=== PATIENT | male | born 1985 | race Caucasian/White ===

== ENCOUNTER 2021-12-01 19:33 | Emergency (ER) | payer MEDICARE, MEDICAID ==
[2021-12-01] MEDS ORDERED: fentaNYL 100 MCG/2 ML SDV IM ONE (20:46)
[2021-12-01] MEDS ORDERED: Ketorolac 30 MG/ML SDV IM ONE (21:33)
[2021-12-01] MEDS ORDERED: Acetaminophen/HYDROcodone 325-5 MG Tab PO ONE (21:34)
== END 2021-12-01 22:21 | disposition home or self-care (01) ==
LOC: JP.ED 19:33
DX: G89.18 Other acute postprocedural pain (principal); M25.561 Pain in right knee; Z88.2 Allergy status to sulfonamides; Z79.01 Long term (current) use of anticoagulants
CPT/HCPCS: 96372; 99283; A9270-GY; J1885; J3010

== ENCOUNTER 2021-12-10 20:29 | Emergency (ER) | payer MEDICARE, MEDICAID ==
[2021-12-11] MEDS ORDERED: diphenhydrAMINE 25 MG Cap PO ONE (00:44)
== END 2021-12-11 00:56 | disposition home or self-care (01) ==
LOC: JP.ED 20:29
DX: Z48.89 Encounter for other specified surgical aftercare (principal); Z88.2 Allergy status to sulfonamides; Z79.01 Long term (current) use of anticoagulants; Z79.899 Other long term (current) drug therapy
CPT/HCPCS: 36415; 80048; 85025; 85379; 86140; 93971; 99283; A9270

== ENCOUNTER 2022-06-17 17:10 | Emergency (ER) | payer MEDICARE, MEDICAID ==
[2022-06-17 21:41] LABS: ESTIMATED GFR 72 mL/min (>60)
== END 2022-06-18 01:56 ==
LOC: JP.ED 17:10
DX: F32.A Depression, unspecified (principal); F41.9 Anxiety disorder, unspecified; Z20.822 Contact with and (suspected) exposure to COVID-19; Z88.2 Allergy status to sulfonamides; Z79.899 Other long term (current) drug therapy
CPT/HCPCS: 36415; 80053; 80305; 84443; 85027; 99285; U0002

== ENCOUNTER 2022-09-11 10:48 | Emergency (ER) | payer MEDICARE, MEDICAID ==
[2022-09-11] MEDS ORDERED: Nitroglycerin 0.4 MG Tab.SL SL PRN (11:09)
[2022-09-11 11:48] LABS: ESTIMATED GFR 66 mL/min (>60)
[2022-09-11] MEDS ORDERED: Ketorolac 30 MG/ML SDV IVPUSH ONE (12:27)
[2022-09-11] MEDS ORDERED: Sodium Chloride 0.9% 1,000 ML IV SCH (12:45)
== END 2022-09-11 14:45 | disposition home or self-care (01) ==
LOC: JP.ED 10:48
DX: R07.89 Other chest pain (principal); Z91.048 Other nonmedicinal substance allergy status; Z88.2 Allergy status to sulfonamides; Z88.8 Allergy status to other drugs, medicaments and biological substances; Z79.01 Long term (current) use of anticoagulants; Z79.899 Other long term (current) drug therapy; Z90.49 Acquired absence of other specified parts of digestive tract
CPT/HCPCS: 36415; 71045; 80053; 84484; 85025; 85379; 93005; 96374; 99285; J1885; J7030

== ENCOUNTER 2022-12-13 11:59 | Emergency (ER) | payer MEDICARE, MEDICAID | END 2022-12-13 13:07 | disposition home or self-care (01) | LOC: JP.ED 11:59 | DX: K04.7 Periapical abscess without sinus (principal); Z91.048 Other nonmedicinal substance allergy status; Z88.2 Allergy status to sulfonamides; Z88.8 Allergy status to other drugs, medicaments and biological substances; Z86.16 Personal history of COVID-19 | CPT/HCPCS: 99282; 99283 ==

== ENCOUNTER 2023-02-21 19:43 | Emergency (ER) | payer MEDICARE, MEDICAID ==
[2023-02-21] MEDS ORDERED: Cyclobenzaprine 10 MG Tab PO ONE (20:17)
[2023-02-21] MEDS ORDERED: Ketorolac 30 MG/ML SDV IM ONE (20:17)
== END 2023-02-21 21:49 | disposition home or self-care (01) ==
LOC: JP.ED 19:43
DX: M54.50 Low back pain, unspecified (principal); M19.90 Unspecified osteoarthritis, unspecified site; Z91.040 Latex allergy status; Z88.8 Allergy status to other drugs, medicaments and biological substances; Z88.2 Allergy status to sulfonamides; Z79.01 Long term (current) use of anticoagulants; Z86.16 Personal history of COVID-19
CPT/HCPCS: 96372; 99284; A9270; J1885; 99283

== ENCOUNTER 2023-04-15 13:28 | Emergency (ER) | payer MEDICARE, MEDICAID ==
[2023-04-15] MEDS ORDERED: HYDROmorphone 0.5 MG/0.5 ML Syringe IM ONE (17:07)
[2023-04-15] MEDS ORDERED: Methocarbamol 500 MG Tab PO ONE (18:59)
== END 2023-04-15 19:10 | disposition home or self-care (01) ==
LOC: JP.ED 13:28
DX: M51.16 Intervertebral disc disorders with radiculopathy, lumbar region (principal); G89.29 Other chronic pain; Z91.09 Other allergy status, other than to drugs and biological substances; Z88.2 Allergy status to sulfonamides; Z88.8 Allergy status to other drugs, medicaments and biological substances; Z79.01 Long term (current) use of anticoagulants; Z86.718 Personal history of other venous thrombosis and embolism; Z86.16 Personal history of COVID-19; Z87.891 Personal history of nicotine dependence
CPT/HCPCS: 72131; 76377; 96372; 99283; A9270; J1170

== ENCOUNTER 2023-07-13 20:26 | Emergency (ER) | payer MEDICAID, MEDICARE ==
[2023-07-13] MEDS ORDERED: Ketorolac 30 MG/ML SDV IM ONE (20:48)
[2023-07-13] MEDS ORDERED: tiZANidine 2 MG Tab PO SCH (21:00)
[2023-07-13] MEDS ORDERED: HYDROmorphone 1 MG/ML Syringe IVPUSH ONE (21:38)
== END 2023-07-13 22:41 | disposition home or self-care (01) ==
LOC: JP.ED 20:26
DX: M54.50 Low back pain, unspecified (principal); G89.29 Other chronic pain; Z91.048 Other nonmedicinal substance allergy status; Z88.2 Allergy status to sulfonamides; Z79.01 Long term (current) use of anticoagulants; Z86.16 Personal history of COVID-19
CPT/HCPCS: 96372; 96374; 99284; A9270; J1170; J1885

== ENCOUNTER 2023-08-13 19:06 | Emergency (ER) | payer MEDICARE | END 2023-08-13 21:12 | disposition left against medical advice (07) | LOC: JP.ED 19:06 | DX: Z53.21 Procedure and treatment not carried out due to patient leaving prior to being seen by health care provider (principal) ==

== ENCOUNTER 2023-08-17 14:33 | Emergency (ER) | payer MEDICARE ==
[2023-08-17] MEDS ORDERED: Methocarbamol 500 MG Tab PO ONE (15:03)
== END 2023-08-17 16:32 | disposition home or self-care (01) ==
LOC: JP.ED 14:33
DX: M54.50 Low back pain, unspecified (principal); G89.29 Other chronic pain; Z88.2 Allergy status to sulfonamides; Z91.09 Other allergy status, other than to drugs and biological substances; Z87.891 Personal history of nicotine dependence
CPT/HCPCS: 99284; A9270

== ENCOUNTER 2023-09-08 11:27 | Emergency (ER) | payer MEDICARE ==
[2023-09-08] MEDS ORDERED: HYDROmorphone 0.5 MG/0.5 ML Syringe IVPUSH ONE (12:11)
[2023-09-08] MEDS ORDERED: Naloxone 0.4 MG/ML SDV IVPUSH PRN (12:11)
[2023-09-08 12:25] LABS: BASOPHILS ABSOLUTE AUTO 0.06 K/uL (0.00-0.10); BASOPHILS PERCENT AUTO 0.8 % (0.1-1.3); EOSINOPHILS ABSOLUTE AUTO 0.07 K/uL (0.00-0.40); EOSINOPHILS PERCENT AUTO 0.9 % (0.0-5.4); HEMATOCRIT 46.2 % (38.4-49.7); HEMOGLOBIN 15.9 g/dL (12.9-16.9); IMMATURE GRAN ABSOLUTE AUTO 0.03 K/uL (0.00-0.23); IMMATURE GRAN PERCENT AUTO 0.4 % (0.0-0.7); LYMPHOCYTES ABSOLUTE AUTO 2.32 K/uL (0.8-3.3); LYMPHOCYTES PERCENT AUTO 29.9 % (11.4-47.7); MEAN CORPUSCULAR HEMOGLOBIN 30.7 pg (31.6-35.5); MEAN CORPUSCULAR HGB CONC 34.4 g/dL (31.6-35.5); MEAN CORPUSCULAR VOLUME 89.2 fL (81.4-99.0); MONOCYTES ABSOLUTE AUTO 0.54 K/uL (0.20-0.90); MONOCYTES PERCENT AUTO 6.9 % (3.3-12.6); NEUTROPHILS ABSOLUTE AUTO 4.75 K/uL (1.0-7.6); NEUTROPHILS PERCENT AUTO 61.1 % (40.0-78.1); PLATELET COUNT,PLT 218 K/uL (130-375); RED BLOOD CELL COUNT 5.18 M/uL (4.14-5.76); WHITE BLOOD CELL COUNT,WBC 7.8 K/uL (3.2-11.0)
[2023-09-08 12:42] LABS: ANION GAP 8.3 mmol/L (5.0-14.0); C-REACTIVE PROTEIN 0.06 mg/dL (0.0-0.3); CALCIUM 8.6 mg/dL (8.5-10.1); CREATININE 1.1 mg/dL (0.8-1.3); EST CRCL DRUG DOSING (CG) 104.83 mL/min; POTASSIUM,K 4.3 mmol/L (3.6-5.2)
== END 2023-09-08 14:38 | disposition home or self-care (01) ==
LOC: JP.ED 11:27
DX: M54.16 Radiculopathy, lumbar region (principal); Z86.711 Personal history of pulmonary embolism; Z86.16 Personal history of COVID-19; Z79.01 Long term (current) use of anticoagulants; Z79.899 Other long term (current) drug therapy; Z91.048 Other nonmedicinal substance allergy status; Z88.2 Allergy status to sulfonamides
CPT/HCPCS: 36415; 72148; 72148-26; 80048; 85025; 86140; 96374; 99284; 99284-25; J1170

== ENCOUNTER 2023-11-06 13:12 | Emergency (ER) | payer MEDICARE ==
[2023-11-06] MEDS ORDERED: Ketorolac 30 MG/ML SDV IM ONE (14:57)
== END 2023-11-06 15:19 | disposition home or self-care (01) ==
LOC: JP.ED 13:12
DX: M47.26 Other spondylosis with radiculopathy, lumbar region (principal); M25.352 Other instability, left hip; M25.552 Pain in left hip; G89.29 Other chronic pain; Z86.16 Personal history of COVID-19; Z90.49 Acquired absence of other specified parts of digestive tract; Z79.899 Other long term (current) drug therapy; Z88.2 Allergy status to sulfonamides; Z91.048 Other nonmedicinal substance allergy status; Z88.8 Allergy status to other drugs, medicaments and biological substances
CPT/HCPCS: 96372; 99283; J1885

== ENCOUNTER 2024-01-19 20:39 | Emergency (ER) | payer MEDICARE ==
[2024-01-19 21:54] LABS: CORONAVIRUS COVID-19 NAA NEGATIVE (NEGATIVE); INFLUENZA A NAA NEGATIVE (NEGATIVE); INFLUENZA B NAA NEGATIVE (NEGATIVE); RESPIRATORY SYNCYTIAL VIR NAA NEGATIVE (NEGATIVE)
[2024-01-19] MEDS: Doxycycline 100 MG Cap PO ONE (21:59)
== END 2024-01-19 22:11 | disposition home or self-care (01) ==
LOC: JP.ED 20:39
DX: R06.02 Shortness of breath (principal); E78.00 Pure hypercholesterolemia, unspecified; Z90.49 Acquired absence of other specified parts of digestive tract; Z79.899 Other long term (current) drug therapy; Z88.2 Allergy status to sulfonamides; Z91.048 Other nonmedicinal substance allergy status
CPT/HCPCS: 0241U; 99284; A9270

== ENCOUNTER 2024-05-15 09:58 | Emergency (ER) | payer MEDICARE ==
[2024-05-15] MEDS: Ondansetron 4 MG/2 ML SDV IVPUSH ONE (11:53)
[2024-05-15] MEDS: Ketorolac 30 MG/ML SDV IVPUSH ONE (11:54)
[2024-05-15 11:55] LABS: BASOPHILS ABSOLUTE AUTO 0.03 K/uL (0.00-0.10); BASOPHILS PERCENT AUTO 0.6 % (0.1-1.3); EOSINOPHILS ABSOLUTE AUTO 0.08 K/uL (0.00-0.40); EOSINOPHILS PERCENT AUTO 1.6 % (0.0-5.4); HEMATOCRIT 40.9 % (38.4-49.7); HEMOGLOBIN 14.6 g/dL (12.9-16.9); IMMATURE GRAN PERCENT AUTO 0.2 % (0.0-0.7); LYMPHOCYTES ABSOLUTE AUTO 1.27 K/uL (0.8-3.3); LYMPHOCYTES PERCENT AUTO 24.9 % (11.4-47.7); MEAN CORPUSCULAR HEMOGLOBIN 30.7 pg (31.6-35.5); MEAN CORPUSCULAR HGB CONC 35.7 g/dL (31.6-35.5); MEAN CORPUSCULAR VOLUME 86.1 fL (81.4-99.0); MONOCYTES ABSOLUTE AUTO 0.47 K/uL (0.20-0.90); MONOCYTES PERCENT AUTO 9.2 % (3.3-12.6); NEUTROPHILS ABSOLUTE AUTO 3.25 K/uL (1.0-7.6); NEUTROPHILS PERCENT AUTO 63.5 % (40.0-78.1); PLATELET COUNT,PLT 168 K/uL (130-375); RED BLOOD CELL COUNT 4.75 M/uL (4.14-5.76); WHITE BLOOD CELL COUNT,WBC 5.1 K/uL (3.2-11.0)
[2024-05-15] MEDS: Sodium Chloride 0.9% 10 ML Syringe FLUSH PRN (11:55)
[2024-05-15 11:57] LABS: IMMATURE GRAN ABSOLUTE AUTO 0.01 K/uL (0.00-0.23)
[2024-05-15 12:16] LABS: A/G RATIO 1.3 (1.2-2.2); ALANINE AMINOTRANSFERASE,ALT 51 U/L (12-78); ALBUMIN 3.9 g/dL (3.4-5.0); ALKALINE PHOSPHATASE 116 U/L (46-116); ANION GAP 6.8 mmol/L (5.0-14.0); ASPARTATE AMNIOTRANSFERASE,AST 27 U/L (15-37); BILIRUBIN TOTAL 0.4 mg/dL (0.2-1.0); BLOOD UREA NITROGEN,BUN 17 mg/dL (7-18); CALCIUM 8.6 mg/dL (8.5-10.1); CARBON DIOXIDE,CO2 26 mmol/L (21-32); CHLORIDE,CL 107 mmol/L (100-108); CREATININE 1.1 mg/dL (0.8-1.3); EST CRCL DRUG DOSING (CG) 103.79 mL/min; ESTIMATED GFR 87 mL/min (>60); GLUCOSE RANDOM 122 mg/dL (74-106); POTASSIUM,K 4.5 mmol/L (3.6-5.2); PROTEIN TOTAL,TP 6.9 g/dL (6.4-8.2); SODIUM,NA 140 mmol/L (140-148)
[2024-05-15 12:46] LABS: APPEARANCE,URINE CLOUDY (CLEAR); BILIRUBIN,URINE SMALL (NEGATIVE); COLOR,URINE BROWN (YELLOW); GLUCOSE,URINE NEGATIVE (NEGATIVE); KETONES,URINE NEGATIVE (NEGATIVE); LEUKOCYTE ESTERASE,URINE NEGATIVE (NEGATIVE); NITRITE,URINE NEGATIVE (NEGATIVE); OCCULT BLOOD,URINE LARGE (NEGATIVE); PROTEIN,URINE 100 mg/dL (NEGATIVE); UROBILINOGEN,URINE 0.2 EU/dL (0.2-1.0)
[2024-05-15 13:12] LABS: BACTERIA,URINE RARE; EPITHELIAL CELLS,URINE RARE; RBC,URINE PACKED (0-5); WBC,URINE NOT SEEN (0-5)
[2024-05-15 13:13] LABS: MUCUS,URINE FEW
[2024-05-15] MEDS ORDERED: Ondansetron 4 MG/2 ML SDV IVPUSH ONE (13:21)
[2024-05-15] MEDS ORDERED: Naloxone 0.4 MG/ML SDV IVPUSH PRN (13:21)
[2024-05-15] MEDS: Sodium Chloride 0.9% 1,000 ML IV ONE (13:31)
[2024-05-15] MEDS: HYDROmorphone 0.5 MG/0.5 ML Syringe IVPUSH ONE (13:31)
[2024-05-15] MEDS: Tamsulosin 0.4 MG Cap.ER PO ONE (14:52)
== END 2024-05-15 15:05 | disposition home or self-care (01) ==
LOC: JP.ED 09:58
DX: N13.2 Hydronephrosis with renal and ureteral calculous obstruction (principal); E78.00 Pure hypercholesterolemia, unspecified; Z91.018 Allergy to other foods; Z91.048 Other nonmedicinal substance allergy status; Z88.2 Allergy status to sulfonamides; Z79.01 Long term (current) use of anticoagulants; Z79.899 Other long term (current) drug therapy
CPT/HCPCS: 36415; 74176; 80053; 81001; 85025; 96361; 96374; 96375; 99284; A9270; J1170; J1885; J2405; J3490; J7030

== ENCOUNTER 2024-05-20 14:37 | Emergency (ER) | payer MEDICARE ==
[2024-05-20 15:46] LABS: BASOPHILS ABSOLUTE AUTO 0.04 K/uL (0.00-0.10); BASOPHILS PERCENT AUTO 0.6 % (0.1-1.3); EOSINOPHILS ABSOLUTE AUTO 0.07 K/uL (0.00-0.40); HEMOGLOBIN 15.5 g/dL (12.9-16.9); IMMATURE GRAN ABSOLUTE AUTO 0.02 K/uL (0.00-0.23); IMMATURE GRAN PERCENT AUTO 0.3 % (0.0-0.7); LYMPHOCYTES ABSOLUTE AUTO 1.88 K/uL (0.8-3.3); LYMPHOCYTES PERCENT AUTO 26.8 % (11.4-47.7); MEAN CORPUSCULAR HGB CONC 35.2 g/dL (31.6-35.5); MEAN CORPUSCULAR VOLUME 85.3 fL (81.4-99.0); MONOCYTES ABSOLUTE AUTO 0.63 K/uL (0.20-0.90); NEUTROPHILS ABSOLUTE AUTO 4.38 K/uL (1.0-7.6); NEUTROPHILS PERCENT AUTO 62.3 % (40.0-78.1); PLATELET COUNT,PLT 193 K/uL (130-375); RED BLOOD CELL COUNT 5.16 M/uL (4.14-5.76)
[2024-05-20 16:06] LABS: A/G RATIO 1.4 (1.2-2.2); ALANINE AMINOTRANSFERASE,ALT 61 U/L (12-78); ALBUMIN 4.5 g/dL (3.4-5.0); ALKALINE PHOSPHATASE 118 U/L (46-116); ASPARTATE AMNIOTRANSFERASE,AST 36 U/L (15-37); BILIRUBIN TOTAL 0.7 mg/dL (0.2-1.0); BLOOD UREA NITROGEN,BUN 18 mg/dL (7-18); CALCIUM 8.9 mg/dL (8.5-10.1); CARBON DIOXIDE,CO2 25 mmol/L (21-32); CHLORIDE,CL 102 mmol/L (100-108); CREATININE 1.4 mg/dL (0.8-1.3); EST CRCL DRUG DOSING (CG) 81.55 mL/min; ESTIMATED GFR 65 mL/min (>60); GLUCOSE RANDOM 98 mg/dL (74-106); POTASSIUM,K 4.2 mmol/L (3.6-5.2); PROTEIN TOTAL,TP 7.7 g/dL (6.4-8.2); SODIUM,NA 137 mmol/L (140-148)
[2024-05-20 16:07] LABS: ANION GAP 14.2 mmol/L (5.0-14.0)
[2024-05-20] MEDS: Sodium Chloride 0.9% 1,000 ML IV SCH (16:20)
[2024-05-20] MEDS: Ondansetron 4 MG/2 ML SDV IVPUSH ONE (16:20)
[2024-05-20] MEDS: Ketorolac 30 MG/ML SDV IVPUSH ONE (16:21)
[2024-05-20 17:46] LABS: BILIRUBIN,URINE SMALL (NEGATIVE); COLOR,URINE YELLOW (YELLOW); GLUCOSE,URINE NEGATIVE (NEGATIVE); KETONES,URINE NEGATIVE (NEGATIVE); LEUKOCYTE ESTERASE,URINE NEGATIVE (NEGATIVE); NITRITE,URINE NEGATIVE (NEGATIVE); OCCULT BLOOD,URINE MODERATE (NEGATIVE); PH,URINE 5.5 (5.0-8.0); PROTEIN,URINE TRACE mg/dL (NEGATIVE); UROBILINOGEN,URINE 0.2 EU/dL (0.2-1.0)
[2024-05-20 17:52] LABS: AMORPHOUS SEDIMENT,URINE NOT SEEN; APPEARANCE,URINE CLOUDY (CLEAR); BACTERIA,URINE FEW; EPITHELIAL CELLS,URINE NOT SEEN; MUCUS,URINE MANY; RBC,URINE 20-30 (0-5); WBC,URINE 0-5 (0-5)
== END 2024-05-20 17:44 | disposition home or self-care (01) ==
LOC: JP.ED 14:37
DX: N20.2 Calculus of kidney with calculus of ureter (principal); E78.00 Pure hypercholesterolemia, unspecified; E66.9 Obesity, unspecified; Z90.49 Acquired absence of other specified parts of digestive tract; Z79.899 Other long term (current) drug therapy; Z88.2 Allergy status to sulfonamides; Z91.048 Other nonmedicinal substance allergy status; Z68.41 Body mass index [BMI] 40.0-44.9, adult
CPT/HCPCS: 36415; 74176; 80053; 81001; 85025; 96361; 96374; 96375; 99284; J1885; J2405; J7030

== ENCOUNTER 2024-05-22 23:57 | Emergency (ER) | payer MEDICARE ==
[2024-05-23] MEDS ORDERED: droPERidol 1.25 MG in Sodium Chloride 0.9% 50 ML IV ONE (00:32)
[2024-05-23] MEDS: HYDROmorphone 0.5 MG/0.5 ML Syringe IVPUSH ONE (00:55)
[2024-05-23] MEDS: droPERidol 5 MG/2 ML SDV IV ONE (00:56)
[2024-05-23] MEDS: diphenhydrAMINE 50 MG/ML SDV IVPUSH ONE (00:59)
[2024-05-23] MEDS: Sodium Chloride 0.9% 1,000 ML IV SCH (01:00)
[2024-05-23] MEDS: Ketorolac 30 MG/ML SDV IVPUSH ONE (01:37)
== END 2024-05-23 02:21 | disposition home or self-care (01) ==
LOC: JP.ED 23:57
DX: N23 Unspecified renal colic (principal); E78.00 Pure hypercholesterolemia, unspecified; Z91.018 Allergy to other foods; Z88.2 Allergy status to sulfonamides; Z91.048 Other nonmedicinal substance allergy status; Z79.01 Long term (current) use of anticoagulants; Z79.899 Other long term (current) drug therapy
CPT/HCPCS: 96361; 96374; 96375; 99283; J1170; J1200; J1790; J1885; J7030

== ENCOUNTER 2024-12-13 21:39 | Emergency (ER) | payer MEDICARE, OTHER ==
[2024-12-13] MEDS: Amoxicillin/Clavulanate K 875-125 MG Tab PO ONE (22:58)
== END 2024-12-13 23:09 | disposition home or self-care (01) ==
LOC: JP.ED 21:39
DX: K04.7 Periapical abscess without sinus (principal); E78.00 Pure hypercholesterolemia, unspecified; Z91.048 Other nonmedicinal substance allergy status; Z88.2 Allergy status to sulfonamides; Z79.01 Long term (current) use of anticoagulants; Z79.899 Other long term (current) drug therapy
CPT/HCPCS: 99283; A9270